=== PATIENT | male | born 1945 | race Caucasian/White ===

== ENCOUNTER 2017-03-10 06:38 | Inpatient (IN) | payer MEDICARE ==
[~2017-03-10] VITALS: Ht 172.7 cm; Wt 89.9 kg
[~2017-03-10 06:38] MED LIST: ALLO100T30 PO; ATOR10TA PO; BP MEDS
[2017-03-10] MEDS ORDERED: SODIUM CHLORIDE FLUSH 10ML SYR IVF ONE (07:00)
[2017-03-10] MEDS ORDERED: SODIUM CHLORIDE 0.9% 1,000 ML IV ONE (07:23)
[2017-03-10] MEDS ORDERED: SODIUM CHLORIDE FLUSH 10ML SYR IVF PRN (07:30)
[2017-03-10] MEDS ORDERED: CHOL10002 PO (07:49)
[2017-03-10] MEDS ORDERED: RIVA20TA PO (07:49)
[2017-03-10] MEDS ORDERED: CYAN100014 PO (07:49)
[2017-03-10] MEDS ORDERED: LOSA100T6 PO (07:49)
[2017-03-10] MEDS ORDERED: GUAIFENESIN/DM 200-20MG, 10ML UDC PO PRN (08:30)
[2017-03-10] MEDS ORDERED: HYDROcodone/APAP 5/325 TABLET PO PRN (08:30)
[2017-03-10] MEDS ORDERED: POLYETHYLENE GLYCOL 17 GM PACKET PO PRN (08:30)
[2017-03-10] MEDS ORDERED: ONDANSETRON ODT 4 MG PO PRN (08:30)
[2017-03-10] MEDS ORDERED: ONDANSETRON 2MG/ML, 2ML IVPush PRN (08:30)
[2017-03-10] MEDS: METOPROLOL TARTRATE 25 MG TABLET PO SCH ×2 (08:30→18:42)
[2017-03-10] MEDS ORDERED: LABETALOL 5MG/ML, 20ML IVPush PRN (08:30)
[2017-03-10 08:38] LABS: BASOPHILS % (AUTO) 1 % (0-1); EOSINOPHILS # (AUTO) 0.13 x10^3/uL (0-0.4); EOSINOPHILS % (AUTO) 1 % (1-7); LYMPHOCYTES # (AUTO) 2.46 x10^3/uL (1-3.4); LYMPHOCYTES % (AUTO) 16 % (22-44); MD NO; MEAN CORPUSCULAR HEMOGLOBIN 34.9 pg (27.5-34.5); MEAN CORPUSCULAR HGB CONC 33.5 g/dL (33.2-36.2); MEAN CORPUSCULAR VOLUME 104.1 fL (81-97); MEAN PLATELET VOLUME 9.1 fL (7.4-10.4); MONOCYTES # (AUTO) 1.02 x10^3/uL (0.2-0.8); MONOCYTES % (AUTO) 7 % (2-9); NEUTROPHILS # (AUTO) 11.48 x10^3/uL (1.8-6.8); NEUTROPHILS % (AUTO) 76 % (42-75); PLATELET COUNT 388 x10^3/uL (130-400); RED BLOOD COUNT 4.27 x10^6/uL (4.38-5.82); RED CELL DISTRIBUTION WIDTH 14.5 % (9.4-14.8)
[2017-03-10 08:49] LABS: ALANINE AMINOTRANSFERASE 36 U/L (12-78); ALBUMIN 3.6 g/dL (3.4-5.0); ANION GAP 4 mmol/L (5-15); CALCIUM 8.3 mg/dL (8.5-10.1); CHLORIDE 111 mmol/L (98-107)
[2017-03-10 08:52] LABS: ALKALINE PHOSPHATASE 67 U/L (45-117); BILIRUBIN,TOTAL 0.9 mg/dL (0.2-1.0); CREATININE 1.07 mg/dL (0.7-1.3); FREE T4 (FREE THYROXINE) 1.04 ng/dL (0.76-1.46); TOTAL PROTEIN 7.1 g/dL (6.4-8.2)
[2017-03-10] MEDS: SENNA/DOCUSATE TABLET PO SCH (09:00)
[2017-03-10] MEDS: ASPIRIN 325 MG TABLET PO SCH (11:45)
[2017-03-10] MEDS: FAMOTIDINE 20 MG/2 ML IVPush SCH ×2 (11:45→20:21)
[2017-03-10 13:35] VITALS: BP 149/76
[2017-03-10] MEDS: morphine SULFATE 10 MG/ML, 1ML IVPush PRN ×3 (14:16→18:42)
[2017-03-10] MEDS ORDERED: MIDAZOLAM 1 MG/ML, 5ML ONE (16:59)
[2017-03-10] MEDS ORDERED: VERAPAMIL 2.5 MG/ML, 2ML ONE (16:59)
[2017-03-10] MEDS ORDERED: FENTANYL PF 100 MCG/2ML ONE (16:59)
[2017-03-10] MEDS ORDERED: BIVALIRUDIN 250 MG ONE (17:00)
[2017-03-10] MEDS ORDERED: LIDOCAINE 2%, 20ML ONE (17:00)
[2017-03-10] MEDS ORDERED: HEPARIN 1,000 UNITS/ML, 10ML ONE (17:00)
[2017-03-10] MEDS ORDERED: NITROGLYCERIN 5 MG/ML, 10ML ONE (17:00)
[2017-03-10 19:29] VITALS: BP 154/97
[2017-03-10] MEDS ORDERED: OMNIPAQUE 350 MG/ML, 75ML BOTTLE ONE (19:52)
[2017-03-10] MEDS: ATORVASTATIN 40 MG TABLET PO SCH (20:21)
[2017-03-10] MEDS ORDERED: ATORVASTATIN 80 MG TABLET PO SCH (21:00)
[2017-03-11 01:39] VITALS: BP 148/89
[2017-03-11 06:04] VITALS: BP 124/79
[2017-03-11] MEDS: METOPROLOL TARTRATE 25 MG TABLET PO SCH ×2 (06:10→17:28)
[2017-03-11 06:24] LABS: ALBUMIN 3.5 g/dL (3.4-5.0); ANION GAP 7 mmol/L (5-15); CALCIUM 8.2 mg/dL (8.5-10.1); CHLORIDE 110 mmol/L (98-107)
[2017-03-11 06:27] LABS: ALANINE AMINOTRANSFERASE 32 U/L (12-78); ALKALINE PHOSPHATASE 71 U/L (45-117); BILIRUBIN,TOTAL 0.8 mg/dL (0.2-1.0); CREATININE 0.98 mg/dL (0.7-1.3); TOTAL PROTEIN 6.8 g/dL (6.4-8.2)
[2017-03-11 06:47] LABS: MEAN CORPUSCULAR HEMOGLOBIN 34.9 pg (27.5-34.5); MEAN CORPUSCULAR HGB CONC 33.1 g/dL (33.2-36.2); MEAN CORPUSCULAR VOLUME 105.3 fL (81-97); MEAN PLATELET VOLUME 12.1 fL (7.4-10.4); PLATELET COUNT 253 x10^3/uL (130-400); RED BLOOD COUNT 4.19 x10^6/uL (4.38-5.82); RED CELL DISTRIBUTION WIDTH 14.8 % (9.4-14.8)
[2017-03-11 07:34] LABS: BASOPHILS # (AUTO) 0.15 x10^3/uL (0-0.1); BASOPHILS % (AUTO) 1 % (0-1); EOSINOPHILS % (AUTO) 1 % (1-7); LYMPHOCYTES # (AUTO) 2.08 x10^3/uL (1-3.4); LYMPHOCYTES % (AUTO) 11 % (22-44); MD SCAN; MONOCYTES # (AUTO) 1.49 x10^3/uL (0.2-0.8); MONOCYTES % (AUTO) 8 % (2-9); NEUTROPHILS # (AUTO) 15.14 x10^3/uL (1.8-6.8); NEUTROPHILS % (AUTO) 80 % (42-75)
[2017-03-11 07:49] VITALS: BP 138/63
[2017-03-11 09:07] LABS: MICROSCOPIC AUTO
[2017-03-11 09:12] LABS: CULTURE INDICATED? NO
[2017-03-11] MEDS: FAMOTIDINE 20 MG/2 ML IVPush SCH ×2 (10:24→19:45)
[2017-03-11] MEDS: ISOSORBIDE MONONITRATE ER 30 MG TABLET PO SCH (10:24)
[2017-03-11] MEDS: CLOPIDOGREL 75 MG TABLET PO SCH (10:24)
[2017-03-11] MEDS: ALLOPURINOL 300 MG TABLET PO SCH (10:25)
[2017-03-11] MEDS: CYANOCOBALAMIN 1,000 MCG TABLET PO SCH (10:25)
[2017-03-11] MEDS: CHOLECALCIFEROL 1,000 UNIT TABLET PO SCH (10:25)
[2017-03-11] MEDS: LOSARTAN 50MG TABLET PO SCH (10:25)
[2017-03-11] MEDS: SENNA/DOCUSATE TABLET PO SCH (10:26)
[2017-03-11] MEDS: ASPIRIN 325 MG TABLET PO SCH (10:26)
[2017-03-11] MEDS ORDERED: POTASSIUM CHLORIDE 20 MEQ TAB.ER.PRT PO ONE (10:30)
[2017-03-11] MEDS ORDERED: FUROSEMIDE 40 MG/4 ML IV ONE (10:30)
[2017-03-11 14:09] VITALS: BP 116/74
[2017-03-11 19:33] VITALS: BP 100/52
[2017-03-11] MEDS: ATORVASTATIN 40 MG TABLET PO SCH (19:45)
[2017-03-12 03:23] VITALS: BP 100/62
[2017-03-12] MEDS: METOPROLOL TARTRATE 25 MG TABLET PO SCH (05:17)
[2017-03-12 05:43] LABS: MEAN CORPUSCULAR HEMOGLOBIN 35.4 pg (27.5-34.5); MEAN CORPUSCULAR HGB CONC 33.8 g/dL (33.2-36.2); MEAN CORPUSCULAR VOLUME 104.6 fL (81-97); MEAN PLATELET VOLUME 9.6 fL (7.4-10.4); PLATELET COUNT 305 x10^3/uL (130-400); RED BLOOD COUNT 4.06 x10^6/uL (4.38-5.82); RED CELL DISTRIBUTION WIDTH 14.5 % (9.4-14.8)
[2017-03-12 05:48] LABS: ANION GAP 8 mmol/L (5-15); CALCIUM 8.2 mg/dL (8.5-10.1); CHLORIDE 108 mmol/L (98-107); CREATININE 1.09 mg/dL (0.7-1.3)
[2017-03-12 06:14] LABS: FOLATE LEVEL 17.9 ng/mL (3.1-17.5); THYROID STIMULATING HORMONE 0.705 mIU/L (0.358-3.740)
[2017-03-12 06:53] LABS: BASOPHILS # (AUTO) 0.15 x10^3/uL (0-0.1); BASOPHILS % (AUTO) 1 % (0-1); EOSINOPHILS # (AUTO) 0.05 x10^3/uL (0-0.4); EOSINOPHILS % (AUTO) 0 % (1-7); LYMPHOCYTES # (AUTO) 2.41 x10^3/uL (1-3.4); LYMPHOCYTES % (AUTO) 14 % (22-44); MD SCAN; MONOCYTES # (AUTO) 1.98 x10^3/uL (0.2-0.8); MONOCYTES % (AUTO) 11 % (2-9); NEUTROPHILS # (AUTO) 12.99 x10^3/uL (1.8-6.8); NEUTROPHILS % (AUTO) 74 % (42-75)
[2017-03-12 07:14] VITALS: BP 123/70
[2017-03-12] MEDS: FAMOTIDINE 20 MG/2 ML IVPush SCH (08:26)
[2017-03-12] MEDS: SENNA/DOCUSATE TABLET PO SCH (08:27)
[2017-03-12] MEDS: CHOLECALCIFEROL 1,000 UNIT TABLET PO SCH (08:27)
[2017-03-12] MEDS: ALLOPURINOL 300 MG TABLET PO SCH (08:27)
[2017-03-12] MEDS: LOSARTAN 50MG TABLET PO SCH (08:27)
[2017-03-12] MEDS: CLOPIDOGREL 75 MG TABLET PO SCH (08:28)
[2017-03-12] MEDS: ISOSORBIDE MONONITRATE ER 30 MG TABLET PO SCH (08:28)
[2017-03-12] MEDS: CYANOCOBALAMIN 1,000 MCG TABLET PO SCH (08:28)
[2017-03-12] MEDS ORDERED: RIVAROXABAN 20 MG TABLET PO SCH ×2 (09:00→17:00)
[2017-03-12] MEDS ORDERED: ISOS30TA8 PO (11:08)
[2017-03-12] MEDS ORDERED: CLOP75TA PO (11:08)
[2017-03-12] MEDS ORDERED: METO25TA35 PO (11:08)
[2017-03-12] MEDS ORDERED: ATOR40TA78 PO (11:08)
[2017-03-12] MEDS ORDERED: METO25TA91 PO ×2 (12:38→12:43)
== END 2017-03-12 14:01 | disposition home or self-care (01) | DRG 280 ==
LOC: ED 07:12 → EDIP 07:23 → 5SO 09:14
PROVIDERS: ADMIT Hospitalist; ATTEND Hospitalist
PROC: 4A023N7 Measurement of Cardiac Sampling and Pressure, Left Heart, Percutaneous Approach (ICD-10-PCS; principal; 2017-03-10)
PROC: B2111ZZ Fluoroscopy of Multiple Coronary Arteries using Low Osmolar Contrast (ICD-10-PCS; 2017-03-10)
PROC: B2151ZZ Fluoroscopy of Left Heart using Low Osmolar Contrast (ICD-10-PCS; 2017-03-10)
PROC: B2131ZZ Fluoroscopy of Multiple Coronary Artery Bypass Grafts using Low Osmolar Contrast (ICD-10-PCS; 2017-03-10)
DX: I21.4 Non-ST elevation (NSTEMI) myocardial infarction (principal); I50.23 Acute on chronic systolic (congestive) heart failure; D68.69 Other thrombophilia; I25.810 Atherosclerosis of coronary artery bypass graft(s) without angina pectoris; I48.2 Chronic atrial fibrillation; I11.0 Hypertensive heart disease with heart failure; D75.89 Other specified diseases of blood and blood-forming organs; E78.5 Hyperlipidemia, unspecified; M54.9 Dorsalgia, unspecified; N40.0 Benign prostatic hyperplasia without lower urinary tract symptoms; I73.9 Peripheral vascular disease, unspecified; G89.29 Other chronic pain; I25.5 Ischemic cardiomyopathy; Z86.73 Personal history of transient ischemic attack (TIA), and cerebral infarction without residual deficits; Z79.01 Long term (current) use of anticoagulants; Z79.899 Other long term (current) drug therapy; Z83.3 Family history of diabetes mellitus; Z87.891 Personal history of nicotine dependence; Z90.49 Acquired absence of other specified parts of digestive tract
CPT/HCPCS: 36415; 71010; 71260; 80048; 80053; 81001; 82607; 82746; 83735; 83880; 84439; 84443; 84484; 85025; 93005; 93459; 93970; 99156; 99285; C1760; C1769; C1894; J0583; J1644; J1940; J2250; J3010; J3490; Q9967; J2270; J7030; S0028